=== PATIENT | male | born 1995 | race Two or more races ===

== ENCOUNTER 2016-08-16 11:06 | Emergency (ER) | payer OTHER ==
[~2016-08-16] VITALS: Ht 170.2 cm; Wt 90.9 kg
[2016-08-16 11:45] VITALS: BP 129/94
== END 2016-08-16 12:33 | disposition home or self-care (01) ==
LOC: EMS 11:08
DX: H60.91 Unspecified otitis externa, right ear (principal); H66.91 Otitis media, unspecified, right ear
CPT/HCPCS: 99283